=== PATIENT | male | born 1975 | race Caucasian/White ===

== ENCOUNTER 2017-05-23 21:30 | Emergency (ER) | payer SELFPAY ==
[~2017-05-23] VITALS: Ht 180.3 cm; Wt 95.0 kg
[2017-05-23] MEDS ORDERED: SODIUM CHLORIDE 0.9% 1,000 ML IV ONE (21:41)
[2017-05-23 22:01] VITALS: BP 123/70
[2017-05-23 22:05] LABS: HEMATOCRIT. 46.8 % (42.0-52.0); HEMOGLOBIN. 15.9 g/dL (14.0-18.0); MEAN CORPUSCULAR HEMOGLOBIN 29.4 pg (28.0-32.0); MEAN CORPUSCULAR VOLUME 86.7 fL (80.0-94.0); MEAN PLATELET VOLUME 7.1 fl (7.4-10.4); PLATELET 255 x1000/uL (130-400); RED BLOOD CELL COUNT 5.39 mill/uL (4.7-6.1)
[2017-05-23 22:09] LABS: INR 1.1
[2017-05-23 22:24] LABS: PLATELET ESTIMATE NORMAL
[2017-05-23 22:26] LABS: CARBON DIOXIDE 24 mEq/L (21-32); CHLORIDE 103 mEq/L (98-107)
== END 2017-05-24 00:10 | disposition home or self-care (01) ==
LOC: ER 21:45
DX: R55 Syncope and collapse (principal); R50.9 Fever, unspecified; R42 Dizziness and giddiness
CPT/HCPCS: 36415; 71045; 80053; 85025; 85610; 93005; 96360; 96361; 99285; J7030; Z7610